=== PATIENT | female | born 1960 | race Caucasian/White ===

== ENCOUNTER → 2017-02-19 | Outpatient (CLI) | payer OTHER ==
[~2017-02-19] MED LIST: EFFEXOR XR150 MG PO; LEVOTHROID50 MCG PO; NORCO 5-325 TA1 EACH PO; ZESTRIL20 MG PO
== END ==
LOC: CAT 09:51
DX: J34.89 Other specified disorders of nose and nasal sinuses (principal); R09.81 Nasal congestion

== ENCOUNTER → 2020-07-28 | Outpatient (CLI) | payer OTHER | LOC: BC 09:28 | PROVIDERS: ATTEND Family Medicine | DX: N63.21 Unspecified lump in the left breast, upper outer quadrant (principal); N63.10 Unspecified lump in the right breast, unspecified quadrant ==

== ENCOUNTER → 2020-08-01 | Outpatient (CLI) | payer OTHER | LOC: ULTRA 08:19 | PROVIDERS: ATTEND Family Medicine | DX: N63.20 Unspecified lump in the left breast, unspecified quadrant (principal); R92.8 Other abnormal and inconclusive findings on diagnostic imaging of breast ==